=== PATIENT | male | born 1985 | race Caucasian/White ===

== ENCOUNTER 2019-09-09 09:09 | Outpatient (CLI) | payer OTHER, SELFPAY ==
--- NOTE | 2019-09-09 | US_ITS ---
WS: [id number] RIGHT UPPER QUADRANT ULTRASOUND HISTORY: ELEVATED LFT'S COMPARISON: None available. Liver: 17.1 cm in length. Enlarged liver with increased attenuation. The entire liver is not very wel l visualized. Gallbladder: Normally distended gallbladder with no stones or wall thickening. CBD: 2.8 cm Pancreas: Normal size and echogenicity. Right kidney: 12.0 cm in length. Normal echogenicity with no mass or hydronephrosis. Aorta and IVC: Unremarkable. No ascites. US/US abdomen limited [id number] IMPRESSION: 1. Normal gallbladder. 2. Mild hepatomegaly with moderate to severe hepatic steatosis.
== END 2019-09-09 09:10 | disposition home or self-care (01) ==
LOC: RADOUTREAD 11:23
PROVIDERS: Visit Provider Nurse Practitioner Family
DX: Z76.89 Persons encountering health services in other specified circumstances (principal)

== ENCOUNTER 2020-08-12 19:41 | Emergency (ER) | payer OTHER, SELFPAY ==
[2020-08-12 19:45] VITALS: BP 182/103; PULSE 98; RESP 18; TEMP 36.7; O2SAT 98; BMI 39.8
--- NOTE | 2020-08-12 19:55 | W.ED.GENADLT ---
HPI - General Adult General: Chief complaint: General Medical Stated complaint: RABID SKUNK EXPOSURE Time Seen by Provider: 08/12/20 19:47 Source: patient Mode of arrival: ambulatory Limitations: no limitations History of Present Illness: HPI narrative: 35-year-old male states that his dogs and killed a skunk and since gone off for testing and did test positive for rabies. He states that he believes he may have been exposed to some of the saliva. He denies any actual bites. Denies any worsening improving factors. Associated symptoms: Deny chest pain, dyspnea, headache(s), nausea, rash or vomiting Review of Systems Const: Denies: fever(s), chills, body aches or change in appetite Eyes: Denies: blurry vision or eye discomfort ENMT: Denies: throat pain or dental pain Card: Denies: chest pain Resp: Denies: dyspnea GI: Denies: abdominal pain, nausea, vomiting or diarrhea : Denies: dysuria Musc: Denies: neck pain or back pain Skin/Breast: Denies: rash Neuro: Denies: headache(s) Psych: Denies: depression Paul/Lymph: Denies: easy bruising All/Imm: Denies: urticaria Physical Exam Const: COMMON NORMALS: no acute distress, average body habitus and patient oriented x3 HENMT: COMMON NORMALS: normocephalic and atraumatic HEAD & SCALP: normocephalic and atraumatic Eye: COMMON NORMALS: Equal, round and reactive pupils present and EOMs intact bilaterally PUPIL: Yes Equal, round and reactive pupils present Neck/C-Spine: COMMON NORMALS: supple Chest: COMMONS NORMALS: normal inspection of the chest Resp: COMMON NORMALS: normal respiratory effort Cardio: COMMON NORMALS: regular rate RATE: regular rate Extremity: COMMON NORMALS: normal to inspection Neuro: COMMON NORMALS: patient oriented x3 Psych: COMMON NORMALS: mental status grossly normal Course Vital Signs: Vital signs: Vital Signs Temperature 98.0 F 08/12/20 19:45 Pulse Rate 98 08/12/20 19:45 Respiratory Rate 18 08/12/20 19:45 Blood Pressure 182/103 08/12/20 19:45 Pulse Oximetry 98 08/12/20 19:45 MDM - General Adult MDM Narrative: Medical decision making narrative: Patient presents here with rabies exposure. We will start his vaccination series and he is to follow-up for continued vaccinations a day 3. Discharge Plan Discharge Patient Disposition: Home Clinical Impression: Rabies exposure Condition: Stable Discharge Orders: Discharge ED (Routine); Ordered 08/12/20 Ordered By: Eric Roberts Referrals: Kat Lindquist FNP [Primary Care Provider] - Discharge Diet: Advance as tolerated Patient Instructions: Rabies Vaccine (Injection), Rabies Immune Globulin (Injection), Rabies (ED) Coding Level of Care Code ED Professor Of Journalism for Mary Kate Knight
[2020-08-12] MEDS: rabies vaccine 2.5 unit SDV IM (20:20)
== END 2020-08-12 20:30 | disposition home or self-care (01) ==
PROVIDERS: Emergency Provider Emergency Medicine; PCP Nurse Practitioner Family
DX: Z20.3 Contact with and (suspected) exposure to rabies (principal); Z23 Encounter for immunization
CPT/HCPCS: 12345; 90375; 90471; 90675; 96372; 99281; 99283

== ENCOUNTER 2020-11-15 12:00 | Outpatient (CLI) | payer OTHER, SELFPAY | END 2020-11-15 12:01 | disposition home or self-care (01) | LOC: SLEEP 11-17 09:20 | PROVIDERS: PCP Nurse Practitioner Family; Visit Provider Nurse Practitioner Family | DX: G47.10 Hypersomnia, unspecified (principal) | CPT/HCPCS: G0399 ==

== ENCOUNTER → 2021-01-31 13:28 | Outpatient (BNVA) | payer OTHER, SELFPAY | PROVIDERS: PCP Family Medicine; Visit Provider Nurse Practitioner Family | DX: Z20.828 Contact with and (suspected) exposure to other viral communicable diseases (principal) | CPT/HCPCS: 87635 ==

== ENCOUNTER 2021-02-14 09:43 | Outpatient (CLI) | payer OTHER, SELFPAY ==
[2021-02-14 10:18] LABS: D Dimer 0.59 ug/mIFEU (0-0.59)
== END 2021-02-14 09:44 | disposition home or self-care (01) ==
PROVIDERS: PCP Family Medicine; Visit Provider Family Medicine
DX: Z86.16 Personal history of COVID-19 (principal)
CPT/HCPCS: 85378

== ENCOUNTER → 2021-04-21 11:11 | Outpatient (BNVA) | payer OTHER, SELFPAY | PROVIDERS: PCP Family Medicine; Visit Provider Psychiatry & Neurology Psychiatry | DX: F41.1 Generalized anxiety disorder (principal); F32.9 Major depressive disorder, single episode, unspecified; F41.0 Panic disorder [episodic paroxysmal anxiety]; F45.21 Hypochondriasis; Z79.899 Other long term (current) drug therapy; F40.00 Agoraphobia, unspecified; R68.89 Other general symptoms and signs; F42.9 Obsessive-compulsive disorder, unspecified | CPT/HCPCS: 90792; 84443 ==

== ENCOUNTER 2021-08-02 08:50 | Outpatient (CLI) | payer OTHER, SELFPAY ==
[2021-08-02 08:56] VITALS: BP 152/92; PULSE 81; RESP 20; TEMP 36.6; O2SAT 99; BMI 37.2
[2021-08-02 09:38] VITALS: BP 131/75; PULSE 75; RESP 17; TEMP 36.6; O2SAT 99
[2021-08-02 10:38] VITALS: BP 131/82; PULSE 61; RESP 17; TEMP 36.5; O2SAT 98
== END 2021-08-02 10:38 | disposition home or self-care (01) ==
LOC: OPS 08:53
PROVIDERS: PCP Family Medicine; Visit Provider Nurse Practitioner Family
DX: U07.1 COVID-19 (principal)
CPT/HCPCS: 96365

== ENCOUNTER → 2021-08-12 10:50 | Outpatient (BNVA) | payer OTHER, SELFPAY | PROVIDERS: PCP Family Medicine; Visit Provider Family Medicine | DX: I10 Essential (primary) hypertension (principal); F41.0 Panic disorder [episodic paroxysmal anxiety]; R00.2 Palpitations; K21.9 Gastro-esophageal reflux disease without esophagitis | CPT/HCPCS: 80053; 80061; 83036; 85025 ==

== ENCOUNTER 2021-09-14 11:36 | Outpatient (CLI) | payer OTHER, SELFPAY ==
[2021-09-14 11:52] VITALS: BMI 32.7
--- NOTE | 2021-09-14 12:08 | ECG_ITS ---
[facility] Test Date: 2021-09-14 Pat Name: Bubba Aragon Department: Room: Gender: Male Aerospace Technician: Idalia Ng : 1985 Requested By: Wilmar Martin Order Number: [id number] Jovan MD: Wilmar Martin M.D. Interpretive Statements NAME OF STUDY: TREADMILL STRESS ECHOCARDIOGRAM INDICATION: Chest Pain, PROCEDURE: The baseline electrocardiogram showed sinus tachycardia with some nonspecific T wave changes.. At the baseline, the patient's blood pressure was 119/67 mm Hg with a heart rate of 101. The patient exercised for 12 minutes and 47 seconds on a standard Rashi protocol. Patient attained a maximum heart rate of 166 beats per minute(89% of the maximum predicted heart rate) with a blood pressure at the peak exercise of 165/77 mm Hg. The EKG at the peak exercise revealed no significant changes. Patient did not have any chest pain or any significant arrhythmis with the exercise Echocardiogram images were taken at the baseline, peak exercise and during the recovery phase During the recovery phase, there were no new changes. Blood pressure at the end of the recovery phase was 100/50 mm Hg with a heart rate of 79 per minute. CONCLUSION: 1. No significant EKG changes with the treadmill exercise 2. No exercise-induced chest pain or cardiac arrhythmia 3. Good exercise tolerance, attained a maximum of 17.2 METs 4. Echocardiographic pictures were taken at the standard views. see separate report. Electronically Signed On 09-16-2021 19:30:48 [employer] ARCHITECT by Wilmar Martin M.D. [id number]
--- NOTE | 2021-09-14 12:12 | USCV_ITS ---
Stress Echo Bubba Aragon Age: 36 Gender: M : 1985 Exam Date: 09/14/2021 12:19 Ordering Phys: Wilmar Martin MD ([email or web address]) Technologist: NARENDRA Exam Location: [facility] [place] Indication: CHEST PAIN Rhythm: Sinus Patient History: Cardiac Medications: Medications in past 24 hours: Contrast: Stress Results Protocol: Rashi Total dose(mL): Exercise Duration (min:sec): 12:30 METS: 17.2 Resting HR: 84 Resting BP: 119 / 67 Peak HR: 166 Peak BP: 169 / 77 Max Predicted HR: 185 90 % Max Predicted HR Target HR: 157 Double Product: 19426 Stress Summary: The patient's target heart rate was achieved BP Response: Normal Reason for Termination: Maximal effort/unable to continue Cardiac Symptoms: Chest pain ECG Analysis Resting ECG: Please see separate report Stress ECG: Please see separate report Arrhythmia: Please see separate report MEASUREMENTS (Male/Female) Normal Values FINDINGS The baseline echocardiogram revealed normal LV size and ejection fraction 55%. Mild concentric left hypertrophy. No significant wall motion normalities. The aortic valve was found to be nonstenotic. With the peak exercise, there is good augmentation of all the segments with no exercise-induced wall motion normalities. During the recovery phase, there is no new changes. CONCLUSIONS 1. Normal echocardiographic response to exercise. 2. No exercise-induced chest pain or cardiac arrhythmia. No significant coronary ischemia, based on the above finding Corrected copy Dr Wilmar Martin MD [facility] (Electronically Signed) Final Date: 14 September 2021 16:47 Amended: 05 October 2021 12:54 C
[2021-09-14 13:05] VITALS: BP 100/50; PULSE 81
== END 2021-09-14 11:37 | disposition home or self-care (01) ==
PROVIDERS: PCP Family Medicine; Visit Provider Internal Medicine Cardiovascular Disease
DX: R07.9 Chest pain, unspecified (principal)
CPT/HCPCS: 93017; 93350

== ENCOUNTER → 2022-01-03 10:19 | Outpatient (BNVA) | payer OTHER, SELFPAY | PROVIDERS: PCP Family Medicine; Visit Provider Family Medicine | DX: E78.2 Mixed hyperlipidemia (principal); I10 Essential (primary) hypertension; F41.1 Generalized anxiety disorder | CPT/HCPCS: 80053; 80061; 85027 ==

== ENCOUNTER → 2022-01-10 09:15 | Outpatient (BNVA) | payer OTHER, SELFPAY | PROVIDERS: PCP Family Medicine; Visit Provider Orthopaedic Surgery | DX: S43.102A Unspecified dislocation of left acromioclavicular joint, initial encounter (principal); X58.XXXA Exposure to other specified factors, initial encounter | CPT/HCPCS: 73030 ==

== ENCOUNTER → 2022-03-07 12:56 | Outpatient (BNVA) | payer OTHER, SELFPAY | PROVIDERS: PCP Family Medicine; Visit Provider Family Medicine | DX: K76.0 Fatty (change of) liver, not elsewhere classified (principal); R10.11 Right upper quadrant pain; R79.89 Other specified abnormal findings of blood chemistry | CPT/HCPCS: 80053; 83690 ==

== ENCOUNTER → 2022-03-09 11:23 | Outpatient (BNVA) | payer OTHER, SELFPAY | PROVIDERS: PCP Family Medicine; Visit Provider Family Medicine | DX: R79.89 Other specified abnormal findings of blood chemistry (principal); E78.2 Mixed hyperlipidemia | CPT/HCPCS: 80053 ==

== ENCOUNTER → 2022-03-15 09:59 | Outpatient (BNVA) | payer OTHER, SELFPAY | PROVIDERS: PCP Family Medicine; Visit Provider Family Medicine | DX: R10.11 Right upper quadrant pain (principal); R79.89 Other specified abnormal findings of blood chemistry | CPT/HCPCS: 80053; 83690 ==

== ENCOUNTER → 2022-03-22 08:34 | Outpatient (BNVA) | payer OTHER, SELFPAY | PROVIDERS: PCP Family Medicine; Visit Provider Family Medicine | DX: R79.89 Other specified abnormal findings of blood chemistry (principal) | CPT/HCPCS: 80053; 83690 ==

== ENCOUNTER → 2022-03-23 07:48 | Outpatient (BNVA) | payer OTHER, SELFPAY | PROVIDERS: PCP Family Medicine; Visit Provider Family Medicine | DX: R79.89 Other specified abnormal findings of blood chemistry (principal) | CPT/HCPCS: 82040; 82670; 83001; 83002; 84146; 84270; 84403; 85025 ==

== ENCOUNTER → 2022-04-18 08:05 | Outpatient (BNVA) | payer OTHER, SELFPAY | PROVIDERS: PCP Family Medicine; Visit Provider Family Medicine | DX: N52.9 Male erectile dysfunction, unspecified (principal); R79.89 Other specified abnormal findings of blood chemistry; E78.2 Mixed hyperlipidemia; E87.79 Other fluid overload | CPT/HCPCS: 80053; 80061; 82040; 82670; 84146; 84270; 84403; 84443; 85025 ==

== ENCOUNTER 2022-04-26 06:05 | Outpatient (CLI) | payer OTHER, SELFPAY ==
--- NOTE | 2022-04-26 06:30 | US_ITS ---
WS: [id number] Complete ABDOMINAL ULTRASOUND HISTORY: Abdominal pain, Elevated LFT's. COMPARISON: 09/09/2019 Liver: 18.0 cm in length. Liver is mildly enlarged with minimal coarse echotexture. No mass or bile d uct dilatation. Portal Vein: Normal hepatopetal flow with monophasic waveform. Gallbladder: Normally distended with no gallstones, wall thickening or pericholecystic fluid. Gallbladder wall thickness: 0.2 cm. Pancreas: Poorly visualized. CBD: 0.2 cm. Right kidney: 12.5 cm x 6.7 cm x 5.2 cm. No mass, cortical thickening or hydronephrosis. Left kidney: 11.9 cm x 6.1 cm x 7.6 cm. No mass, cortical thickening or hydronephrosis. Spleen: Spleen is mildly enlarged measuring 14.5 cm in length. Normal concavity of the hilum. There a re also splenic granulomata. Abdominal aorta and IVC are within normal limits. No ascites. US/US abdomen complete* [id number] IMPRESSION: 1. Mild splenomegaly. 2. Negative gallbladder. 3. No renal obstruction. 4. Poor visualization of the pancreas.
== END 2022-04-26 06:06 | disposition home or self-care (01) ==
LOC: RAD 06:05
PROVIDERS: PCP Family Medicine; Visit Provider Family Medicine
DX: R10.11 Right upper quadrant pain (principal); R94.5 Abnormal results of liver function studies; R16.1 Splenomegaly, not elsewhere classified
CPT/HCPCS: 76700

== ENCOUNTER → 2022-06-14 11:32 | Outpatient (BNVA) | payer OTHER, SELFPAY | PROVIDERS: PCP Family Medicine; Visit Provider Family Medicine | DX: E29.1 Testicular hypofunction (principal) | CPT/HCPCS: 80053; 82670; 84146; 84403; 85025 ==

== ENCOUNTER → 2022-06-26 08:36 | Outpatient (BNVA) | payer OTHER, SELFPAY | PROVIDERS: PCP Family Medicine; Visit Provider Family Medicine | DX: E29.1 Testicular hypofunction (principal) | CPT/HCPCS: 84403 ==

== ENCOUNTER → 2022-07-25 09:46 | Outpatient (BNVA) | payer OTHER, SELFPAY | PROVIDERS: PCP Family Medicine; Visit Provider Family Medicine | DX: E29.1 Testicular hypofunction (principal) | CPT/HCPCS: 84403 ==

== ENCOUNTER → 2022-08-14 10:06 | Outpatient (BNVA) | payer OTHER, SELFPAY | PROVIDERS: PCP Family Medicine; Visit Provider Urology | DX: E29.1 Testicular hypofunction (principal); N52.9 Male erectile dysfunction, unspecified | CPT/HCPCS: 80076; 82670; 84403; 85025 ==

== ENCOUNTER → 2022-08-17 15:11 | Outpatient (BNVA) | payer OTHER, SELFPAY | PROVIDERS: PCP Family Medicine; Visit Provider Urology | DX: E29.1 Testicular hypofunction (principal); Z12.5 Encounter for screening for malignant neoplasm of prostate | CPT/HCPCS: 84153 ==

== ENCOUNTER → 2022-08-28 10:05 | Outpatient (BNVA) | payer OTHER, SELFPAY | PROVIDERS: PCP Family Medicine; Visit Provider Urology | DX: E29.1 Testicular hypofunction (principal); Z12.5 Encounter for screening for malignant neoplasm of prostate | CPT/HCPCS: 84403 ==

== ENCOUNTER → 2022-11-06 09:42 | Outpatient (BNVA) | payer OTHER, SELFPAY | PROVIDERS: PCP Family Medicine; Visit Provider Urology | DX: E29.1 Testicular hypofunction (principal); R79.89 Other specified abnormal findings of blood chemistry; N52.9 Male erectile dysfunction, unspecified | CPT/HCPCS: 80053; 80061; 80076; 82670; 84403; 85025; G0103 ==

== ENCOUNTER → 2023-02-21 09:37 | Outpatient (BNVA) | payer OTHER, SELFPAY | PROVIDERS: PCP Family Medicine; Visit Provider Family Medicine | DX: E29.1 Testicular hypofunction (principal); R79.89 Other specified abnormal findings of blood chemistry | CPT/HCPCS: 80053; 84403; 85025 ==

== ENCOUNTER → 2023-03-27 16:19 | Outpatient (BNVA) | payer OTHER, SELFPAY | PROVIDERS: PCP Family Medicine; Visit Provider Internal Medicine | DX: R79.89 Other specified abnormal findings of blood chemistry (principal); E29.1 Testicular hypofunction; J06.9 Acute upper respiratory infection, unspecified | CPT/HCPCS: 84305 ==

== ENCOUNTER → 2023-03-28 09:32 | Outpatient (BNVA) | payer OTHER, SELFPAY | PROVIDERS: PCP Family Medicine; Visit Provider Internal Medicine | DX: E29.1 Testicular hypofunction (principal); J06.9 Acute upper respiratory infection, unspecified; R79.89 Other specified abnormal findings of blood chemistry | CPT/HCPCS: 82533; 84146; 84439; 84443 ==

== ENCOUNTER 2023-03-30 09:45 | Outpatient (CLI) | payer OTHER, SELFPAY ==
[2023-03-30 11:37] LABS: Urine Creatinine 107 mg/dL (39-259)
[2023-03-30 11:45] LABS: Total Volume Urine 3000 ml
[2023-04-05 13:56] LABS: Free Cortisol Urine 45.8 mcg/24 h (4.0-50.0); Total Urine 3000 mL; Urine Creatinine 2.84 g/24 h (0.50-2.15)
[2023-04-05 18:46] LABS: Calculated Total (E+NE) 211 mcg/24 h (26-121)
[2023-04-10 18:33] LABS: 24 Hour Urine Volume 3000 mL; 5-HIAA, 24 Hour Urine 3.8 mg/24 h (< OR = 6.0)
== END 2023-03-30 09:46 | disposition home or self-care (01) ==
PROVIDERS: PCP Family Medicine; Visit Provider Internal Medicine
DX: R79.89 Other specified abnormal findings of blood chemistry (principal); E29.1 Testicular hypofunction; J06.9 Acute upper respiratory infection, unspecified
CPT/HCPCS: 82384; 82530; 82570; 83497

== ENCOUNTER → 2023-04-19 08:55 | Outpatient (BNVA) | payer OTHER, SELFPAY | PROVIDERS: PCP Family Medicine; Visit Provider Family Medicine | DX: I10 Essential (primary) hypertension (principal); R79.89 Other specified abnormal findings of blood chemistry | CPT/HCPCS: 80053; 80061; 84403; 85027 ==

== ENCOUNTER → 2023-07-25 11:10 | Outpatient (BNVA) | payer OTHER, SELFPAY | PROVIDERS: PCP Family Medicine; Visit Provider Family Medicine | DX: E29.1 Testicular hypofunction (principal); R79.89 Other specified abnormal findings of blood chemistry | CPT/HCPCS: 84403; 85025 ==

== ENCOUNTER 2023-08-22 08:24 | Outpatient (CLI) | payer OTHER, SELFPAY ==
--- NOTE | 2023-08-22 08:45 | MR_ITS ---
WS: [id number] MRI LUMBAR SPINE NONCONTRAST HISTORY: Lumbar disc herniation, vertebral subluxation, lumbar pain COMPARISON: MRI lumbar spine 07/02/2019 TECHNIQUE: Sagittal and axial multisequence imaging is submitted. Slight reversal of the normal lumbar lordosis centered at L2-3 is new since the prior study. There is significant progression of degenerative disc disease at L2-3. L2-3 disc space narrowing and there ar e endplate changes of edema with increasing osteophytosis. L2 retrolisthesis by 3 mm. Mild disc desiccation at L5-S1. Conus terminates normally at L1. L1-L2: Mild annular disc bulging. No high-grade stenosis. L2-L3: Marked annular disc bulging with ligamentum flavum and facet arthritis. There is deformity of the ventral thecal sac. At least moderate central with bilateral subarticular recess and foraminal st enosis. Slightly greater stenosis RIGHT foramen. There is significant encroachment upon the traversin g L3 nerve roots. L3-L4: Mild annular disc bulging with facet joint arthritis. Broad-based RIGHT foraminal disc protrus ion. Moderate central, bilateral subarticular recess and RIGHT foraminal stenosis. Mild LEFT foramina l stenosis. L4-L5: Diffuse annular disc bulging with moderate facet arthritis. Shallow LEFT foraminal disc protru liliana. Mild central, bilateral subarticular recess and foraminal stenosis. L5-S1: Mild annular disc bulging with a central disc protrusion. Moderate facet joint arthritis and l igamentum flavum arthropathy encroaching into the subarticular recesses and foramina. Fluid in the fa cet joints. The central disc protrusion is slightly extending caudad from the disc level. Moderate ce ntral, bilateral subarticular recess and RIGHT foraminal stenosis. There is disc contacting the S1 ne rve roots and also the L5 RIGHT exiting nerve root. Normal paravertebral soft tissues. IMPRESSION: 1. Increasing degenerative disc disease and spondylosis at L2-3 since the prior study from 2019. [place] of disc space height with marrow edema and increasing osteophytosis. Multilevel increased since man noses since the prior study. 2. L3-4: Moderate central, bilateral subarticular recess and RIGHT foraminal stenosis. Mild LEFT for aminal stenosis. Associated broad-based RIGHT foraminal disc protrusion. 3. L4-5: Mild central and bilateral subarticular recess and foraminal stenosis. Shallow LEFT foramin al disc protrusion. 4. L5-S1: Moderate central, bilateral subarticular recess and RIGHT foraminal stenosis. Disc contact s the S1 nerve roots and the RIGHT L5 exiting nerve root. 5. L2-3: Moderate central with bilateral subarticular recess and foraminal stenosis, RIGHT greater t matthews LEFT.
--- NOTE | 2023-08-22 09:30 | MR_ITS ---
WS: [id number] MRI CERVICAL SPINE NONCONTRAST HISTORY: Neck pain with radiculopathy, Syrinx of C7 COMPARISON: MRI 07/02/2019 lumbar spine. Technique: Multiplanar, multisequence noncontrast imaging of the cervical spine. Mild straightening of the normal cervical lordosis. Very slight retrolisthesis of C5 by 2 mm. Very mi ld disc desiccation throughout the cervical spine. Reidentified is increased T2 signal in the central cervical spine extending over a length of 1.7 cm c onsistent with a small syrinx. There is an additional smaller and more subtle central increased T2 si gnal in the cervical cord at C5 extending over a length of 0.6 cm. Seen best on the T2 sequences ther e is subtle increased T2 signal in the thoracic cord at the T2 level incompletely visualized. This po tentially could be an artifact or additional signal abnormality within the cord. Craniocervical junction, C1 and C2 relationship, odontoid process and soft tissues are normal. C2-C3: Normal. C3-C4: Mild annular disc bulging with a moderate disc osteophyte complex in the proximal RIGHT forame n. Small osteophytes in the LEFT foramen. Mild RIGHT foraminal stenosis. C4-C5: Mild annular disc bulging and osteophytic ridging. Small LEFT foraminal disc osteophyte comple x causing displacement of the nerve roots. Moderate LEFT foraminal stenosis. C5-C6: Mild osteophytic ridging and annular disc bulging. Bilateral foraminal disc osteophyte complex es and facet arthritis. Mild central with moderate bilateral foraminal stenosis. Slightly greater dis placement of the left-sided nerve roots. C6-C7: Normal. C7-T1: Normal. Paraspinal soft tissues are normal. IMPRESSION: 1. 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 Measures 1.7 cm in length. 2. There is an additional smaller cervical cord syrinx at the C5 level extending over a length of 0. 6 cm. 3. There is additional increased T2 signal in the thoracic cord at the T2 level incompletely imaged. This should be further evaluated for cord pathology. 4. Recommendation: Follow-up cervical spine MRI with contrast. Additional MRI thoracic spine should be obtained with and without contrast. 5. C3-4: Mild RIGHT foraminal stenosis. 6. C4-5: Moderate LEFT foraminal stenosis. 7. C5-6: Mild central with moderate bilateral foraminal stenosis, slightly greater displacement of t he left-sided nerve roots.
== END 2023-08-22 08:25 | disposition home or self-care (01) ==
LOC: RAD 08:24
PROVIDERS: PCP Family Medicine; Visit Provider Family Medicine
DX: G95.0 Syringomyelia and syringobulbia (principal); M51.27 Other intervertebral disc displacement, lumbosacral region; M48.02 Spinal stenosis, cervical region; M51.16 Intervertebral disc disorders with radiculopathy, lumbar region
CPT/HCPCS: 72141; 72148

== ENCOUNTER → 2023-10-15 08:59 | Outpatient (BNVA) | payer OTHER, SELFPAY | PROVIDERS: PCP Family Medicine; Visit Provider Family Medicine | DX: E29.1 Testicular hypofunction (principal); R79.89 Other specified abnormal findings of blood chemistry; I10 Essential (primary) hypertension | CPT/HCPCS: 80053; 84403; 85025 ==

== ENCOUNTER 2023-10-19 08:22 | Outpatient (CLI) | payer OTHER, SELFPAY ==
--- NOTE | 2023-10-19 08:45 | MR_ITS ---
WS: [id number] MRI CERVICAL SPINE with contrast HISTORY: abnormal MRI, cervical syrinx, DDD/DJD, follow-up cervical syrinx described on 08/22/2023. Add itional imaging to evaluate for solid or enhancing component. COMPARISON: MRI C-spine, noncontrast 08/22/2023. Technique: Postcontrast imaging of the cervical spine performed, MultiHance 20 mL. Additional noncont rast sagittal T1 sequence was also submitted. Cervical cord syrinx centered at the C7 level extending over a length of approximately 1.7 cm is fantasma entified. On the postcontrast images there is no enhancement. There is no mass associated with the sy rinx. The syrinx has not progressed. No inferior displacement of the cerebellar tonsils. No Chiari ma lformation. IMPRESSION: 1. Cervical cord syrinx centered at C7 similar in size to 08/22/2023. 2. No enhancing mass or abnormal enhancement associated with the cervical cord syrinx.
--- NOTE | 2023-10-19 09:30 | MR_ITS ---
WS: [id number] MRI THORACIC SPINE with and without contrast HISTORY: abnormal MRI, thoracic cord lesion COMPARISON: MRI C-spine 08/22/2023 TECHNIQUE: Multiplanar sequences are performed in sagittal and axial planes. MultiHance 20 mL IV. Reidentified is a syrinx noted in the lower cervical spine extending into the upper thoracic spine. I ncreased T2 signal in the central thoracic cord extends from T1 to the T4-[address] of the syrinx is 2 mm. There is no associated mass or enhancement. There is no significant cord a trophy. There is very slight deviation and straightening of the thoracic cord at the T5-6 level. No associate d arachnoid cyst is evident. This may be an adhesion from prior trauma. T5-6: There is a central disc protrusion very slightly contacting the ventral thoracic cord. T8-9: Very shallow LEFT paracentral disc protrusion. No additional disc protrusions. No stenosis. No fractures or marrow edema. IMPRESSION: 1. 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 Syrinx extends from T1 to the T4-5 disc level. 2. No mass or abnormal enhancement associated with the thoracic cord syrinx. 3. T5-6: Central disc protrusion slightly contacting the ventral cord. 4. T8-9: Very shallow LEFT paracentral disc protrusion with no cord contact. 5. Very slight widening of the CSF at the C5 level. This can be seen with an arachnoid cyst although no cyst is apparent. May be an adhesion from prior trauma.
[2023-10-19] MEDS: gadobenate dimeglumine 20 mL vial IV (09:44)
== END 2023-10-19 08:23 | disposition home or self-care (01) ==
LOC: RAD 08:23
PROVIDERS: PCP Family Medicine; Visit Provider Family Medicine
DX: G95.0 Syringomyelia and syringobulbia (principal); M50.30 Other cervical disc degeneration, unspecified cervical region; M47.14 Other spondylosis with myelopathy, thoracic region; M51.34 Other intervertebral disc degeneration, thoracic region; R93.7 Abnormal findings on diagnostic imaging of other parts of musculoskeletal system
CPT/HCPCS: 72142; 72157; A9577

== ENCOUNTER → 2024-01-02 10:33 | Outpatient (BNVA) | payer OTHER, SELFPAY | PROVIDERS: PCP Family Medicine; Visit Provider Nurse Practitioner Psychiatric/Mental Health | DX: Z12.5 Encounter for screening for malignant neoplasm of prostate (principal); E29.1 Testicular hypofunction; R79.89 Other specified abnormal findings of blood chemistry; Z79.899 Other long term (current) drug therapy; Z51.81 Encounter for therapeutic drug level monitoring | CPT/HCPCS: 80307 ==

== ENCOUNTER → 2024-02-01 13:11 | Outpatient (BNVA) | payer OTHER, SELFPAY | PROVIDERS: PCP Family Medicine; Visit Provider Family Medicine | DX: R79.89 Other specified abnormal findings of blood chemistry (principal); E29.1 Testicular hypofunction; Z51.81 Encounter for therapeutic drug level monitoring; Z79.890 Hormone replacement therapy | CPT/HCPCS: 80053; 84403; 85025; G0103 ==

== ENCOUNTER → 2024-03-03 09:42 | Outpatient (BNVA) | payer OTHER, SELFPAY | PROVIDERS: PCP Family Medicine; Visit Provider Nurse Practitioner Family | DX: R50.9 Fever, unspecified (principal) | CPT/HCPCS: 87426 ==

== ENCOUNTER → 2024-08-12 09:18 | Outpatient (BNVA) | payer OTHER, SELFPAY | PROVIDERS: PCP Family Medicine; Visit Provider Family Medicine | DX: Z12.5 Encounter for screening for malignant neoplasm of prostate (principal); R79.89 Other specified abnormal findings of blood chemistry; E29.1 Testicular hypofunction; E55.9 Vitamin D deficiency, unspecified | CPT/HCPCS: 80053; 80061; 82306; 84403; 84443; 85025; G0103 ==

== ENCOUNTER → 2024-08-27 11:33 | Outpatient (BNVA) | payer OTHER, SELFPAY | PROVIDERS: PCP Family Medicine | DX: R50.9 Fever, unspecified (principal); H83.03 Labyrinthitis, bilateral | CPT/HCPCS: 87400 ==

== ENCOUNTER → 2024-12-15 09:48 | Outpatient (BNVA) | payer OTHER, SELFPAY | PROVIDERS: PCP Family Medicine; Visit Provider Family Medicine | DX: E78.2 Mixed hyperlipidemia (principal); I10 Essential (primary) hypertension; F41.1 Generalized anxiety disorder; E29.1 Testicular hypofunction; R79.89 Other specified abnormal findings of blood chemistry; Z12.5 Encounter for screening for malignant neoplasm of prostate; E55.9 Vitamin D deficiency, unspecified | CPT/HCPCS: 80053; 80061; 82306; 82607; 84403; 84439; 84443; 85025; G0103 ==

== ENCOUNTER → 2025-03-23 15:11 | Outpatient (BNVA) | payer OTHER, SELFPAY | PROVIDERS: PCP Family Medicine; Visit Provider Family Medicine | DX: E55.9 Vitamin D deficiency, unspecified (principal); E29.1 Testicular hypofunction; R79.89 Other specified abnormal findings of blood chemistry; R61 Generalized hyperhidrosis; R60.1 Generalized edema | CPT/HCPCS: 80053; 82306; 82533; 82607; 82746; 83735; 84100; 84403; 84439; 84443; 85025; 86003; 86008; 86038 ==

== ENCOUNTER → 2025-06-10 10:20 | Outpatient (BNVA) | payer OTHER, SELFPAY | PROVIDERS: PCP Family Medicine; Visit Provider Family Medicine | DX: E29.1 Testicular hypofunction (principal); R61 Generalized hyperhidrosis; R79.89 Other specified abnormal findings of blood chemistry; R53.82 Chronic fatigue, unspecified | CPT/HCPCS: 80053; 82607; 82670; 84403; 84443; 85025; 86140 ==